=== PATIENT | male | born 1950 | race Caucasian/White ===

== ENCOUNTER → 2017-03-30 | Outpatient (CLI) | payer MEDICARE, BC ==
--- NOTE | 2017-03-30 10:34 | XR ---
EXAMINATION TYPE: XR KUB DATE OF EXAM: 03/30/2017 CLINICAL HISTORY: Left flank pain and history of nephrolithiasis. TECHNIQUE: Single supine KUB image of the abdomen is obtained. COMPARISON: None. FINDINGS: Scattered gas is seen in non-distended small bowel loops. In the expected region of the le ft ureterovesicular junction and distal ureter there are 3 calculi stacked upon each other measuring 1.7 cm, 1.0 cm and 0.8 cm. Additional 5 mm left renal calculus is again seen. Stool and bowel gas ove rlie the right renal shadow, obscuring visualization. Mild rotatory dextroscoliotic curvature of the thoracic spine is noted as well as degenerative changes of the lumbosacral junction. Gas and fecal ma terial is seen in non-distended colon. Cholecystectomy clips are noted within the right upper quadran t. The lung bases are clear and the osseous structures are intact. IMPRESSION: 1. Multiple calculi within the expected region of the left distal ureter at the ureterovesicular junc tion measuring 1.7 cm, 1.0 cm and 0.8 cm. These are likely obstructing. 2. Additional 5 mm left renal calculus. 3. Nonobstructive bowel gas pattern.
== END | disposition home or self-care (01) ==
LOC: RADXRMAIN 09:55
PROVIDERS: ATTEND Urology
DX: N20.2 Calculus of kidney with calculus of ureter (principal); R14.0 Abdominal distension (gaseous)
CPT/HCPCS: 74000

== ENCOUNTER → 2017-04-13 | Outpatient (CLI) | payer MEDICARE, BC ==
--- NOTE | 2017-04-13 13:33 | US ---
EXAMINATION TYPE: US kidneys/renal and bladder DATE OF EXAM: 04/13/2017 COMPARISON: NONE CLINICAL HISTORY: Calculus of ureter N20.1. h/o renal stones EXAM MEASUREMENTS: Right Kidney: 10.9 x 4.5 x 5.4 cm Left Kidney: 9.0 x 3.8 x 3.5 cm Right Kidney: tiny, echogenic foci may represent small stones Left Kidney: no hydronephrosis seen, 0.8cm superior pole stone seen, 2 simple cyst seen, largest = 2. 8cm Bladder: wnl Bilateral Jets seen: Yes There is no evidence for hydronephrosis at this point in time. Bilateral nephrolithiasis. No masses a re identified. The urinary bladder is anechoic. Bilateral ureteral jets are seen. IMPRESSION: Nonobstructing nephrolithiasis. Simple cysts left kidney.
== END | disposition home or self-care (01) ==
LOC: RADUSWWP 12:52
PROVIDERS: ATTEND Urology
DX: N20.0 Calculus of kidney (principal); N28.1 Cyst of kidney, acquired; Z88.2 Allergy status to sulfonamides
CPT/HCPCS: 76770

== ENCOUNTER → 2017-06-16 | Outpatient (CLI) | payer MEDICARE, BC ==
--- NOTE | 2017-06-16 11:25 | XR ---
EXAMINATION TYPE: XR abdomen 1V DATE OF EXAM: 06/16/2017 11:02 AM CLINICAL HISTORY: Nephrolithiasis. Follow-up examination. TECHNIQUE: Single supine KUB image of the abdomen is obtained. COMPARISON: 03/30/2017. FINDINGS: Scattered gas is seen in non-distended small bowel loops. Gas and fecal material is seen in non-distended colon. The previously seen calculi at the left ureterovesicular junction and surgicall y removed in the interim. No new calculi are appreciated. The lung bases are clear and the osseous s tructures are intact. Cholecystectomy clips reside within the right upper quadrant in the right mid a bdomen. There is a mild levoscoliotic curvature of the lumbar spine. IMPRESSION: 1. Interval removal of the distal ureteral calculi at the ureterovesicular junction. 2. Nonobstructive bowel gas pattern.
--- NOTE | 2017-06-16 11:33 | US ---
EXAMINATION TYPE: US kidneys/renal and bladder DATE OF EXAM: 06/16/2017 COMPARISON: 04/13/2017 CLINICAL HISTORY: N20.0 CALCULUS OF KIDNEY, N20.1 CALCULUS OF URETER. Hx of bilateral stones. Patien t states having the stones blasted in may and surgery in June. Patient states not having any pain since. EXAM MEASUREMENTS: Right Kidney: 10.5 x 5.7 x 5.4 cm Left Kidney: 9.1 x 4.4 x 5.4 cm Right Kidney: wnl, No hydronephrosis or masses seen . No nephrolithiasis on today's examination. Left Kidney: Two lateral cystic lesions seen. 1- mid pole = 3.0 x 3.2 x 2.6 cm. 2- lower pole= 2.4 x 1.8 x 2.3 cm. These appear similar in size to the prior exam. No nephrolithiasis on today's examinat ion. Bladder: distended, wnl as visualized Right Jet seen IMPRESSION: 1. No current sonographic evidence of nephrolithiasis within either kidney. No hydronephrosis. 2. Similar appearing left renal cysts.
== END | disposition home or self-care (01) ==
LOC: RADUSWWP 10:13
PROVIDERS: ATTEND Urology
DX: N28.1 Cyst of kidney, acquired (principal); N20.0 Calculus of kidney
CPT/HCPCS: 74000; 76770

== ENCOUNTER → 2018-05-29 | Outpatient (CLI) | payer MEDICARE, BC ==
--- NOTE | 2018-05-29 15:34 | US ---
EXAMINATION TYPE: US carotid duplex BILAT DATE OF EXAM: 05/29/2018 COMPARISON: NONE CLINICAL HISTORY: R09.89 CAROTID BRUIT. Carotid bruit EXAM MEASUREMENTS: RIGHT: Peak Systolic Velocity (PSV) cm/sec ----- Right CCA: 120 ----- Right ICA: 104 ----- Right ECA: 78.1 ICA/CCA ratio: 0.87 RIGHT: End Diastole cm/sec ----- Right CCA: 17.0 ----- Right ICA: 33.3 ----- Right ECA: 0.0 LEFT: Peak Systolic Velocity (PSV) cm/sec ----- Left CCA: 121 ----- Left ICA: 129 ----- Left ECA: 107 ICA/CCA ratio: 1.07 LEFT: End Diastole cm/sec ----- Left CCA: 20.8 ----- Left ICA: 24.5 ----- Left ECA: 8.9 VERTEBRALS (direction of flow): Right Vertebral: Antegrade Left Vertebral: Antegrade Rhythm: Normal IMPRESSION: Mild plaque bilateral bifurcations. No evidence of significant stenosis Criteria for Assigning % of Stenosis / Diameter reduction (Estimation based on the indirect measurements of the internal carotid artery velocities (ICA PSV). 1. Normal (no stenosis)=ICA PSV < 125 cm/s: ratio < 2.0: ICA EDV<40 cm/s. 2. Less than 50% stenosis=ICA PSV < 125 cm/s: ratio < 2.0: ICA EDV<40 cm/s. 3. 50 to 69% stenosis=ICA PSV of 125 to 230 cm/s: ration 2.0 ? 4.0: ICA EDV 40-100 cm/s. 4. Greater than 70% stenosis to near occlusion= ICA PSV > 230 cm/s: ratio > 4.0: ICA EDV > 100 cm/s. 5. Near occlusion= ICA PSV velocities may be low or undetectable: variable ratio and ICA EDV. 6. Total occlusion=unable to detect flow.
== END ==
LOC: RADUSWWP 14:48
PROVIDERS: ATTEND Family Medicine
DX: I70.90 Unspecified atherosclerosis (principal); R09.89 Other specified symptoms and signs involving the circulatory and respiratory systems; Z88.2 Allergy status to sulfonamides
CPT/HCPCS: 93880

== ENCOUNTER 2021-12-08 09:32 | Emergency (ER) | payer MEDICARE, BC ==
[2021-12-08 09:38] VITALS: RESP 18
--- NOTE | 2021-12-08 10:15 | XR ---
EXAMINATION TYPE: XR hand limited RT DATE OF EXAM: 12/08/2021 COMPARISON: NONE INDICATION: Pinched garage door, pain and laceration TECHNIQUE: Standard 2 views of the right hand. FINDINGS: Scattered degenerative changes of the interphalangeal and metacarpophalangeal joints most evident inv olving the first metacarpophalangeal and the fifth interphalangeal joints. Mild soft tissue swelling of the fifth finger. Slightly negative ulnar variance. No definite acute fr acture line identified. IMPRESSION: No definite acute fracture line identified. Degenerative changes and other findings as described esperanza chavarria
[2021-12-08] MEDS ORDERED: LIDOCAINE 1% INJ 10MG/ML (5 ML VIAL-PF) SQ ONE (13:43)
[2021-12-08] MEDS ORDERED: TOPICAL SKIN ADHESIVE 1 EACH AMP TOPICAL ONE (13:51)
--- NOTE | 2021-12-08 14:04 | ED ---
Wound/Laceration HPI - General Chief Complaint: Wound/Laceration Stated Complaint: Cut on R Hand Time Seen by Provider: 12/08/21 13:48 Source: patient, RN notes reviewed, old records reviewed Mode of arrival: ambulatory Limitations: no limitations - History of Present Illness Initial Comments: Well-appearing 71-year-old male presents to the emergency room with multiple lacerations to his right little finger on his garage door at 9:00 this morning. He states that his tetanus shot is up-to-date. He has full range of motion, bleeding is controlled. -: hour(s) (5) Extremity Location: Right: Hand (little finger) Place: home Patient Tetanus UTD: Yes Context: accidental Associated Symptoms: none Treatments Prior to Arrival: other (irrigation) - Related Data Home Medications Medication Instructions Recorded Confirmed Atorvastatin [Lipitor] 20 mg PO HS 12/08/21 12/08/21 Cholecalciferol [Vitamin D3 (25 100 mcg PO DAILY 12/08/21 12/08/21 Mcg = 1000 Iu)] Colestipol HCl 2 gm PO DAILY 12/08/21 12/08/21 Potassium Citrate [Urocit-K] 15 meq PO BID 12/08/21 12/08/21 Timolol 0.5% Ophth Soln [Timoptic 1 drop BOTH EYES DAILY 12/08/21 12/08/21 0.5% Ophth Soln] calcitrioL [Calcitriol] 0.25 mcg PO Q14D 12/08/21 12/08/21 Previous Rx's Medication Instructions Recorded Cephalexin [Keflex] 500 mg PO Q6HR 5 Days #20 cap 12/08/21 Allergies Allergy/AdvReac Type Severity Reaction Status Date / Time brimonidine Allergy Rash/Hives Verified 12/08/21 14:16 Sulfa (Sulfonamide Allergy Rash/Hives Verified 12/08/21 14:16 Antibiotics) Review of Systems ROS Statement: Those systems with pertinent positive or pertinent negative responses have been documented in the HPI. ROS Other: All systems not noted in ROS Statement are negative. Past Medical History Past Medical History: No Reported History Additional Past Medical History / Comment(s): kidney stones History of Any Multi-Drug Resistant Organisms: None Reported Past Surgical History: Cholecystectomy, Hernia Repair Additional Past Surgical History / Comment(s): vasectomy Past Psychological History: No Psychological Hx Reported Smoking Status: Never smoker Past Alcohol Use History: None Reported Past Drug Use History: None Reported General Exam Limitations: no limitations General appearance: alert, in no apparent distress Head exam: Present: atraumatic Eye exam: Present: normal appearance Respiratory exam: Absent: respiratory distress, accessory muscle use Cardiovascular Exam: Present: regular rate Extremities exam: Present: normal capillary refill Right Forearm Wrist exam: Present: normal inspection, full ROM. Absent: tenderness Hand Wrist exam: Present: abrasion, laceration (Multiple lacerations to the little finger including superficial lacerations to medial phalange, <1cm flap avulsion distal phalange with extensor tendon visible and intact, laceration at palmar crease ). Absent: tenderness, deformity, amputation, nail avulsion, subungual hematoma Neuro motor exam: Present: wrist extension intact, thumb opposition intact, thumb IP flexion intact, thumb adduction intact, fingers 2-5 abduction intact Neurosensory exam: Present: radial nerve intact, ulnar nerve intact, median nerve intact Vascular: Present: normal capillary refill. Absent: vascular compromise Neurological exam: Present: alert, oriented X3, normal gait Psychiatric exam: Present: normal affect, normal mood Skin exam: Present: warm, dry, normal color. Absent: cyanosis, diaphoretic Course Vital Signs 12/08/21 12/08/21 09:32 14:52 Temperature 97.7 F 98.6 F Pulse Rate 99 89 Respiratory 18 18 Rate Blood Pressure 159/100 120/78 O2 Sat by Pulse 97 98 Oximetry Procedures - Laceration Laceration #1 Consent Obtained: verbal consent Indication: laceration Site: upper extremity, hand (right little finger) Size (cm): 2 Description: linear Depth: simple, single layer Anesthetic Used: lidocaine 1% Anesthesia Technique: local infiltration Pre-repair: irrigated extensively Type of Sutures: nylon Size of Sutures: 5-0 Number of Sutures: 3 Technique: simple, interrupted Patient Tolerated Procedure: well, no complications (exofin applied to flap avulsion and superficial dorsal surface lacerations) Medical Decision Making - Medical Decision Making Wounds were irrigated by the nurse with saline. Patient's tetanus shot is up-to-date. Flap avulsion was closed with exofin glue. The extensor tendon under the avulsion was visible, appears intact. 3 sutures used to close palmar crease laceration at the base of the right little finger. A bulky dressing and aluminum splint was applied. Patient has good range of motion, radial ulnar and median nerves intact. Patient is able to flex and extend his fifth phalanx however due to tendon visualization will be referred to orthopedics. Patient was placed on antibiotics and instructed to have suture removal in 10 days, return if any new or concerning symptoms including fever, increased pain or signs of infection. Patient is able to this plan of care. Disposition Clinical Impression: Laceration Disposition: HOME SELF-CARE Condition: Good Instructions (If sedation given, give patient instructions): Finger Laceration (ED) Additional Instructions: Keep wound clean and dry, take antibiotics as prescribed. Follow-up with orthopedics this week. Wear aluminum splint until seen by orthopedics. Return to the emergency room with any new or concerning symptoms including increased pain, signs of infection or fever. Prescriptions: Cephalexin [Keflex] 500 mg PO Q6HR 5 Days #20 cap Is patient prescribed a controlled substance at d/c from ED?: No Referrals: Naseem Reyes MD [Primary Care Provider] - 1-2 days Glendy Chiu DO [Doctor of Osteopathic Medicine] - 1-2 days Time of Disposition: 14:23
[2021-12-08 14:53] VITALS: BP 120/78; PULSE 89; TEMP 98.6
== END 2021-12-08 14:52 | disposition home or self-care (01) ==
LOC: EC 09:32
DX: S61.216A Laceration without foreign body of right little finger without damage to nail, initial encounter (principal); Z88.2 Allergy status to sulfonamides; Z88.8 Allergy status to other drugs, medicaments and biological substances; W23.1XXA Caught, crushed, jammed, or pinched between stationary objects, initial encounter
CPT/HCPCS: 73120; 12001; 99283; J2001

== ENCOUNTER → 2024-06-13 | Outpatient (CLI) | payer MEDICARE, BC ==
--- NOTE | 2024-06-13 11:28 | CT ---
EXAMINATION TYPE: CT abdomen pelvis wo con CT DLP: 418.1 mGycm, Automated exposure control for dose reduction was used. DATE OF EXAM: 06/13/2024 10:58 AM COMPARISON: Abdominal radiograph 06/16/2017, renal ultrasound 06/16/2017 CLINICAL INDICATION:Male, 74 years old with history of R42 DIZZINESS AND GIDDINESS; flank pain TECHNIQUE: Standard CT of the abdomen and pelvis without IV or oral contrast. Lack of IV or oral co ntrast limits evaluation of solid and hollow organ viscera. Coronal and sagittal reformats were perfo rmed. FINDINGS: LOWER CHEST: Unremarkable ABDOMEN LIVER: Unremarkable noncontrast appearance. GALLBLADDER AND BILE DUCTS: The gallbladder is surgically absent. No biliary ductal dilatation. PANCREAS: Unremarkable noncontrast appearance. SPLEEN: Punctate calcified granulomas. ADRENAL GLANDS: Unremarkable noncontrast appearance. KIDNEYS AND URETERS: No evidence of hydronephrosis. Nonobstructive bilateral renal calculi with large st within the right kidney measuring 4 mm. Atrophy of the left kidney with cortical cysts largest quentin suring up to 4.0 cm. There is a 6 mm calculus in the region of the distal right ureter at the uretero vesical junction (series 3, and 113). PELVIS BLADDER: Unremarkable REPRODUCTIVE: Unremarkable. ABDOMEN & PELVIS STOMACH AND BOWEL: Stomach and duodenum are unremarkable. Redundant sigmoid colon. Scattered colonic diverticulosis without evidence for acute diverticulitis. The appendix is within normal limits. No ev idence of bowel obstruction. PERITONEUM: No evidence of pneumoperitoneum or free fluid. VASCULATURE: Moderate atherosclerotic calcifications are present throughout the abdominal aorta and i ts branches. No evidence of aortic aneurysm. MUSCULOSKELETAL: No acute osseous abnormalities. Dextrocurvature of the thoracolumbar spine. Mild mul tilevel degenerative disc disease and facet arthropathy. LYMPH NODES: No gross evidence for lymphadenopathy. SOFT TISSUE/ABDOMINAL WALL: Unremarkable IMPRESSION: 1. 6 mm calculus identified in the region of the right ureterovesical junction without resultant hyd roureteronephrosis. May represent a pelvic phlebolith versus nonobstructive calculus. 2. Nonobstructive bilateral renal calculi. 3. Atrophy left kidney with cortical cysts. 4. Colonic diverticulosis without evidence for acute diverticulitis. [facility], , 06/13/2024 11:26 AM
== END | disposition home or self-care (01) ==
LOC: RADCTMAIN 10:26
PROVIDERS: ATTEND Urology
DX: N13.30 Unspecified hydronephrosis (principal); K57.30 Diverticulosis of large intestine without perforation or abscess without bleeding; N20.0 Calculus of kidney; N26.1 Atrophy of kidney (terminal)
CPT/HCPCS: 74176

== ENCOUNTER → 2024-06-20 | Outpatient (CLI) | payer MEDICARE, BC ==
[2024-06-20 15:18] LABS: Basophils # (A) 0.05 X 10*3/uL (0.00-0.10); Basophils % (A) 0.9 %; Eosinophils % (A) 5.2 %; HCT 44.4 % (39.6-50.0); HGB 14.1 g/dL (13.0-17.0); Lymphocytes # (A) 1.36 X 10*3/uL (0.90-5.00); Lymphocytes % (A) 23.5 %; MCH 28.5 pg (27.0-32.0); MCHC 31.8 g/dL (32.0-37.0); MCV 89.9 FL (80.0-97.0); Mean Platelet Volume 13.4 FL (9.5-12.2); Monocytes # (A) 0.58 X 10*3/uL (0.20-1.00); NRBC Per 100 WBC 0 X 10*3/uL (0.00-0.01); Neutrophils # (A) 3.48 X 10*3/uL (1.80-7.70); Neutrophils % (A) 60.1 %; Platelet Count 171 X 10*3/uL (140-440); RBC 4.94 X 10*6/uL (4.40-5.60); RDW 13.4 % (11.5-14.5); WBC 5.79 X 10*3/uL (4.50-10.00)
[2024-06-20 15:31] LABS: Blood Urea Nitrogen 18.3 mg/dL (9.0-27.0); Calcium 10.6 mg/dL (8.7-10.3); Carbon Dioxide 29.8 mmol/L (21.6-31.8); Chloride 105 mmol/L (96-109); Glucose 79 mg/dL (70-110); Potassium 4.7 mmol/L (3.5-5.5); Sodium 142 mmol/L (135-145)
== END | disposition home or self-care (01) ==
LOC: LABPAT 11:11
PROVIDERS: ATTEND Urology
DX: Z01.812 Encounter for preprocedural laboratory examination (principal); N20.1 Calculus of ureter
CPT/HCPCS: 80048; 85025